=== PATIENT | female | born 1940 | race Caucasian/White ===

== ENCOUNTER 2017-05-19 22:15 | Emergency (ER) | payer MEDICARE, BC ==
--- NOTE | 2017-05-19 23:33 | EDM.PDOC ---
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 No headache or eye pain. Denies weakness or facial droop. She has had catarracts removed several years ago but no other eye problems. A month ago she saw her linseed oil refiner for an exam and no problems. No history of retinal or glaucoma problems. - Related Data Allergies Allergy/AdvReac Type Severity Reaction Status Date / Time amoxicillin Allergy Hives Verified 11/04/14 16:45 Home Meds: Home Meds Aspirin [Halfprin] 81 mg PO DAILY 11/04/14 [History] Past Medical History - Past Health History Medical/Surgical History: Denies Medical/Surgical History HEENT History: Reports: Impaired Vision Musculoskeletal History: Reports: Arthritis - Past Surgical History HEENT Surgical History: Reports: Cataract Surgery Female Surgical History: Reports: Hysterectomy Social & Family History - Tobacco Use Smoking Status *Q: Never Smoker Second Hand Smoke Exposure: No - Caffeine Use Caffeine Use: Reports: Coffee - Alcohol Use Days Per Week of Alcohol Use: 0 - Recreational Drug Use Recreational Drug Use: No ED ROS GENERAL - Review of Systems Review Of Systems: See Below Constitutional: Denies: Fever, Chills, Weakness HEENT: Reports: Vision Change. Denies: Throat Pain Respiratory: Reports: Cough (she has had a cold and cough for a week). Denies: Shortness of Breath Cardiovascular: Denies: Chest Pain, Blood Pressure Problem, Lightheadedness, Syncope GI/Abdominal: Denies: Abdominal Pain : Reports: No Symptoms Musculoskeletal: Reports: No Symptoms Skin: Denies: Cyanosis, Jaundice, Mottled, Pallor, Diaphoresis Neurological: Denies: Confusion, Dizziness, Headache, Numbness, Seizure, Syncope , Trouble Speaking, Difficulty Walking Psychiatric: Denies: Agitation, Anxiety, Confusion ED EXAM GENERAL W FULL EYE - Physical Exam Exam: See Below Exam Limited By: No Limitations General Appearance: Alert, WD/WN, No Apparent Distress Eye Exam: Right Eye: Vision Changes (eye exam reveals visual field deficit medially in right eye), Bilateral Eye: EOMI, Normal Fundi, PERRL Eyelids: Bilateral: Normal Appearance Conjunctiva & Sclera: Bilateral: Normal Appearance Extraocular Movements: Bilateral: Intact Pupillary Size: Bilateral: 3 mm Pupillary Reaction: Bilateral: Brisk Ears: Normal External Exam, Hearing Grossly Normal Nose: Normal Inspection, No Blood Throat/Mouth: Normal Inspection, Normal Lips, Normal Voice, No Airway Compromise Head: Atraumatic, Normocephalic Neck: Normal Inspection, Supple, Non-Tender, Full Range of Motion. No: Carotid Bruit Respiratory/Chest: No Respiratory Distress, Lungs Clear, Normal Breath Sounds Cardiovascular: Normal Peripheral Pulses, Regular Rate, Rhythm, No Edema, No Gallop, No Murmur Extremities: Normal Inspection, Normal Range of Motion, No Pedal Edema Neurological: Alert, Oriented, CN II-XII Intact, Normal Cognition, Normal Gait, No Motor/Sensory Deficits Psychiatric: Normal Affect, Normal Mood Skin Exam: Warm, Dry, Intact, Normal Color, No Rash Course - Vital Signs Last Recorded V/S: Last Vital Signs Temp 97.8 F 05/19/17 22:47 Pulse 73 05/19/17 22:47 Resp 16 05/19/17 22:47 BP 183/72 H 05/19/17 22:47 Pulse Ox 94 L 05/19/17 22:47 - Orders/Labs/Meds Orders: Active Orders 24 hr Category Date Time Status Head wo Cont [CT] Stat Exams 05/19/17 22:55 Taken - Re-Assessments/Exams Free Text/Narrative Re-Assessment/Exam: 05/19/17 23:33 I see no evidence of stroke and feel this is strictly an eye problem such as retinal detachment. I discussed findings with Dr. Casper (Light Industrial Supervisor) at [facility] in [place] who advised that I let patient return home tonight and see come him at 9:15 tomorrow morning at his office. He advised no strenuous activity until then. The radiologist called right after that with no specific findings and recommended MRI for further evaluation but Ophthalmology referral even better. Discussed findings and plan with patient and her ; they are in agreement with this. Patient says the blind area has improved noticeably since it started. Discharged in stable condition. Departure - Departure Time of Disposition: 23:27 Disposition: Home, Self-Care 01 Condition: Good Clinical Impression: Visual field defect, unspecified - Discharge Information Instructions: Retinal Detachment Additional Instructions: 1. Go home and avoid any lifting or strenuous activity tonight. 2. Go to [address] [place] [address] in [place] tomorrow for a 9:15 appointment. It would be a good idea to plan to arrive by 9:00. 3. The Light Industrial Supervisor that I talked to is Dr. Casper. - My Orders Last 24 Hours: My Active Orders 05/19/17 22:55 Head wo Cont [CT] Stat - Assessment/Plan Last 24 Hours: My Active Orders 05/19/17 22:55 Head wo Cont [CT] Stat
[2017-05-20 01:44] VITALS: BP 169/63
== END 2017-05-19 23:45 | disposition home or self-care (01) ==
LOC: KA.ED 22:15
DX: H53.40 Unspecified visual field defects (principal); M19.90 Unspecified osteoarthritis, unspecified site; Z98.49 Cataract extraction status, unspecified eye; Z90.710 Acquired absence of both cervix and uterus; Z79.82 Long term (current) use of aspirin; Z88.1 Allergy status to other antibiotic agents
CPT/HCPCS: 70450; 99284

== ENCOUNTER → 2022-02-03 | Day surgery (SDC) | payer MEDICARE, BC ==
[~2022-02-03] MED LIST: Midazolam 1 MG/ML 2 ML SDV ONE; Propofol 200 MG/20 ML SDV ONE; Sodium Chloride 0.9% 10 ML Syringe FLUSH PRN
[2022-02-03] MEDS: Lactated Ringers 1,000 ML IV SCH (10:37)
[2022-02-03 14:48] VITALS: BP 145/78; PULSE 74
== END | disposition home or self-care (01) ==
LOC: KA.SDS 10:01
PROVIDERS: ATTEND Family Medicine
DX: K57.30 Diverticulosis of large intestine without perforation or abscess without bleeding (principal); E78.2 Mixed hyperlipidemia; I10 Essential (primary) hypertension; M81.0 Age-related osteoporosis without current pathological fracture; K21.9 Gastro-esophageal reflux disease without esophagitis; I65.29 Occlusion and stenosis of unspecified carotid artery; K59.00 Constipation, unspecified; Z98.890 Other specified postprocedural states; Z79.899 Other long term (current) drug therapy
CPT/HCPCS: J2250; J2704; J7120

== ENCOUNTER 2023-06-16 09:50 | Emergency (ER) | payer MEDICARE ==
[2023-06-16] MEDS ORDERED: Sodium Chloride 0.9% 10 ML Syringe FLUSH PRN (10:29)
[2023-06-16 10:35] LABS: BASOPHILS ABSOLUTE AUTO 0.01 10^3/uL (0.00-0.10); BASOPHILS PERCENT AUTO 0.1 % (0.0-1.0); HEMATOCRIT 27.2 % (37.0-47.0); HEMOGLOBIN 9.3 g/dL (12.0-16.0); IMMATURE GRAN ABSOLUTE AUTO 0.06 10^3/uL (0.00-0.50); IMMATURE GRAN PERCENT AUTO 0.8 % (0.0-5.0); LYMPHOCYTES ABSOLUTE AUTO 0.55 10^3/uL (1.00-4.00); LYMPHOCYTES PERCENT AUTO 7.6 % (20.0-40.0); MEAN CORPUSCULAR HEMOGLOBIN 30.1 pg (27.0-31.0); MEAN CORPUSCULAR HGB CONC 34.2 g/dL (32.0-36.0); MEAN PLATELET VOLUME 9.6 fL (7.4-10.4); MONOCYTES PERCENT AUTO 8.2 % (2.0-8.0); NEUTROPHILS ABSOLUTE AUTO 6.06 10^3/uL (2.50-7.00); NEUTROPHILS PERCENT AUTO 83.3 % (50.0-70.0); PLATELET COUNT,PLT 318 10^3/uL (150-400); RED BLOOD CELL COUNT 3.09 10^6/uL (3.80-5.50); RED CELL DISTRIBUTION WIDTH 13.3 % (11.5-14.5); WHITE BLOOD CELL COUNT,WBC 7.28 10^3/uL (5.00-10.00)
[2023-06-16 10:38] VITALS: BP 132/57; PULSE 88
[2023-06-16 10:55] LABS: ALBUMIN 2.54 g/dL (3.40-5.00); ANION GAP 11.9 mmol/L (5-15); BILIRUBIN TOTAL 0.7 mg/dL (0.2-1.0); CARBON DIOXIDE,CO2 27.9 mmol/L (21.0-32.0); CREATININE 0.83 mg/dL (0.51-1.17); EST CRCL DRUG DOSING (CG) 41.74 mL/min; POTASSIUM,K 2.8 mmol/L (3.5-5.1); PROTEIN TOTAL,TP 6.2 g/dL (6.4-8.2)
[2023-06-16] MEDS: NS + KCl 20mEq/L 1,000 ML IV SCH ×2 (11:42→13:45)
[2023-06-16 12:56] LABS: APPEARANCE,URINE CLEAR (CLEAR); BILIRUBIN,URINE NEGATIVE (NEGATIVE); COLOR,URINE YELLOW (YELLOW); GLUCOSE,URINE NEGATIVE (NEGATIVE); KETONES,URINE NEGATIVE (NEGATIVE); LEUKOCYTE ESTERASE,URINE NEGATIVE (NEGATIVE); NITRITE,URINE POSITIVE (NEGATIVE); OCCULT BLOOD,URINE TRACE-INTACT (NEGATIVE); PH,URINE 6.5 (5.0-9.0); PROTEIN,URINE NEGATIVE (NEGATIVE); UROBILINOGEN,URINE 0.2 E.U./dL (0.2-1.0)
[2023-06-16 13:05] LABS: BACTERIA,URINE MODERATE /HPF (NONE TO FEW); EPITHELIAL CELLS,URINE RARE /LPF; WBC,URINE 0-5 /HPF (0-5)
[2023-06-16] MEDS ORDERED: Levofloxacin/Dextrose 5%-Water 750 MG in Premix Bag 1 BAG IV ONE (13:50)
[2023-06-16 15:41] LABS: ANION GAP 11.8 mmol/L (5-15); CALCIUM 7.3 mg/dL (8.7-10.3); CARBON DIOXIDE,CO2 27.6 mmol/L (21.0-32.0); CREATININE 0.67 mg/dL (0.51-1.17); EST CRCL DRUG DOSING (CG) 51.7 mL/min; POTASSIUM,K 3.4 mmol/L (3.5-5.1)
== END 2023-06-16 16:11 | disposition home or self-care (01) ==
LOC: KA.ED 09:50
DX: J18.9 Pneumonia, unspecified organism (principal); N39.0 Urinary tract infection, site not specified; E87.6 Hypokalemia; E87.1 Hypo-osmolality and hyponatremia; E78.00 Pure hypercholesterolemia, unspecified; M19.90 Unspecified osteoarthritis, unspecified site; Z79.82 Long term (current) use of aspirin; Z79.899 Other long term (current) drug therapy; Z88.1 Allergy status to other antibiotic agents
CPT/HCPCS: 36415; 71046; 80048; 80053; 81001; 83605; 85025; 87040; 87086; 87088; 87186; 96365; 96366; 96368; 99283-25; 99284; J1956; J3480